=== PATIENT | male | born 1960 | race Caucasian/White ===

== ENCOUNTER 2021-07-24 17:33 | Emergency (ER) | payer BC ==
[2021-07-24] MEDS ORDERED: Insulin Regular 300 UNITS/3 ML VIAL ONE (19:04)
== END 2021-07-24 20:05 | disposition home or self-care (01) ==
LOC: MADERS 17:33
DX: E11.65 Type 2 diabetes mellitus with hyperglycemia (principal); I10 Essential (primary) hypertension; M10.9 Gout, unspecified; K21.9 Gastro-esophageal reflux disease without esophagitis; F17.210 Nicotine dependence, cigarettes, uncomplicated; Z79.84 Long term (current) use of oral hypoglycemic drugs; Z79.899 Other long term (current) drug therapy
CPT/HCPCS: 36416; 99284; J1815